=== PATIENT | female | born 1985 ===

== ENCOUNTER 2018-08-27 13:25 | Emergency (ER) | payer OTHER ==
[2018-08-27 13:33] VITALS: BP 108/70; PULSE 64; RESP 20; TEMP 97.9; O2SAT 100
--- NOTE | 2018-08-27 14:21 | C.PDOC ---
History Of Present Illness 32 y/o female presents to the ED complaining of suprapubic pain for 5 days. Pain is localized and non-radiating. Associated with dysuria. Otherwise patient denies any nausea, vomiting, vaginal bleeding, or diarrhea. Time Seen by Provider: 08/27/18 13:49 Chief Complaint (Nursing): Female Genitourinary History Per: Patient History/Exam Limitations: no limitations Onset/Duration Of Symptoms: Days (5) Current Symptoms Are (Timing): Still Present Associated Symptoms: Urinary Symptoms Past Medical History Reviewed: Historical Data, Nursing Documentation, Vital Signs Vital Signs: Last Vital Signs Temp 97.9 F 08/27/18 13:30 Pulse 64 08/27/18 13:30 Resp 20 08/27/18 13:30 BP 108/70 08/27/18 13:30 Pulse Ox 100 08/27/18 13:30 - Medical History PMH: No Chronic Diseases Surgical History: No Surg Hx Family History: States: Unknown Family Hx - Social History Hx Alcohol Use: No Hx Substance Use: No - Immunization History Hx Tetanus Toxoid Vaccination: No Hx Influenza Vaccination: No Hx Pneumococcal Vaccination: No Review Of Systems Except As Marked, All Systems Reviewed And Found Negative. Constitutional: Negative for: Fever, Chills Gastrointestinal: Positive for: Abdominal Pain. Negative for: Nausea, Vomiting, Diarrhea Genitourinary: Positive for: Dysuria. Negative for: Vaginal Discharge, Vaginal Bleeding Skin: Negative for: Rash Neurological: Negative for: Weakness Physical Exam - Physical Exam Appears: Non-toxic, No Acute Distress Skin: Warm, Dry, No Rash Head: Atraumatic, Normacephalic Eye(s): bilateral: Normal Inspection Oral Mucosa: Moist Neck: Normal ROM Chest: Symmetrical Respiratory: No Accessory Muscle Use, Other (NARD) Gastrointestinal/Abdominal: Soft, No Tenderness, No Guarding, No Rebound Back: Normal Inspection Extremity: Bilateral: Atraumatic, Normal Color And Temperature Pulses: Left Radial: Normal, Right Radial: Normal Neurological/Psych: Oriented x3 ED Course And Treatment - Laboratory Results Urine POC: Negative O2 Sat by Pulse Oximetry: 100 Medical Decision Making Medical Decision Making: Plan: * UA and urine preg UA shows (+) RBC and bacteria. Patient will be discharged home with Macrobid and Pyridium. Disposition Counseled Patient/Family Regarding: Studies Performed, Diagnosis, Need For Followup, Rx Given - Disposition Referrals: [facility] [Outside] [facility] [Outside] Disposition: HOME/ ROUTINE Disposition Time: 14:47 Condition: GOOD Prescriptions: Nitrofurantoin Macrocrystals [Macrobid] 1 cap PO BID #14 cap Phenazopyridine HCl [Pyridium] 200 mg PO BID #6 tablet Instructions: Dysuria, Adult (DC) Forms: [employer] (Albanian) Print Language: BELARUSIAN - Clinical Impression Clinical Impression: Dysuria, Hematuria - Scribe Statement The provider has reviewed the documentation as recorded by the Valdo Wright Provider Attestation: All medical record entries made by the Valdo were at my direction and personally dictated by me. I have reviewed the chart and agree that the record accurately reflects my personal performance of the history, physical exam, medical decision making, and the department course for this patient. I have also personally directed, reviewed, and agree with the discharge instructions and disposition.
[2018-08-27 14:40] LABS: SQUAMOUS EPITHIAL 4 /hpf (0-5); URINE BACTERIA FEW (<OCC); URINE BILIRUBIN NEGATIVE (NEGATIVE); URINE BLOOD 3+ (NEGATIVE); URINE CLARITY Clear (Clear); URINE COLOR Yellow (YELLOW); URINE GLUCOSE (UA) NORMAL (Normal); URINE LEUKOCYTE ESTERASE NEG Leu/uL (Negative); URINE PROTEIN NEGATIVE (NEGATIVE); URINE UROBILINOGEN NORMAL mg/dL (0.2-1.0)
== END 2018-08-27 15:04 | disposition home or self-care (01) ==
LOC: C.ER 13:25
DX: R30.0 Dysuria (principal); R31.9 Hematuria, unspecified